=== PATIENT | male | born 1995 | race Caucasian/White ===

== ENCOUNTER 2018-04-23 22:19 | Emergency (ER) | payer BC, OTHER ==
[~2018-04-23] VITALS: Ht 176.5 cm; Wt 95.3 kg
[~2018-04-23 22:19] MED LIST: BENADRYL25 MG PO; BENADRYL50 MG PO; EPIPEN 2-PAK1 MG/ML MR; FLEXERIL10 MG PO; IBUPROFEN PO; KEFLEX500 MG PO; MEDROL DOSEPAK4 MG PO; NAPROSYN500 MG PO; PREDNICOT20 MG PO
[2018-04-23] MEDS ORDERED: BENZONATATE100 M1 PO (22:28)
[2018-04-23] MEDS ORDERED: 24 HOUR ALLER15.8 ML NAS (22:29)
[2018-04-23] MEDS ORDERED: AUGMENTIN 875875 MG PO (22:29)
[2018-04-23] MEDS ORDERED: IBU800 M1 PO (22:29)
[2018-04-23] MEDS ORDERED: ALBUTEROL2.5 MG/0.5 INH (22:31)
[2018-04-23] MEDS ORDERED: PULMICORT RESP0.5 M1 INH (22:32)
[2018-04-23 22:49] LABS: BASO % 0.5 % (0.0-1.0); EOS # 0.5 10*3/uL (0.0-0.4); EOS % 6.9 % (1.0-4.0); HEMATOCRIT 44.5 % (42.0-52.0); HEMOGLOBIN 15.6 g/dl (14.0-18.0); LYMPH # 2.8 10*3/uL (1.3-4.4); LYMPH % 35.7 % (27.0-41.0); MEAN CELL VOLUME 84.6 fl (80.0-94.0); MEAN CORPUSCULAR HGB 29.7 pg (27.0-31.0); MEAN CORPUSCULAR HGB CONC 35.1 g/dl (33.0-37.0); MONO # 0.6 10*3/uL (0.1-1.0); MONO % 7.6 % (3.0-9.0); NEUT # 3.9 10*3/uL (2.3-7.9); PLATELET COUNT AUTOMATED 191 10*3/uL (130-400); RED BLOOD COUNT 5.26 10*6/uL (4.50-5.90); RED CELL DISTRI WIDTH 12.3 % (0-14.5); WHITE BLOOD COUNT 7.9 10*3/uL (4.8-10.8)
[2018-04-23 23:05] LABS: ALBUMIN 4.3 gm/dl (3.1-4.5); ALKALINE PHOSPHATASE 115 U/L (45-117); BUN 14 mg/dl (7-24); CHLORIDE 107 mmol/L (98-107); CREATININE 0.93 mg/dL (0.70-1.30); POTASSIUM 3.8 mmol/L (3.5-5.1); SGOT/AST 9 IU/L (3-35); SGPT/ALT 24 U/L (12-78); SODIUM 143 mmol/L (136-145); TOTAL PROTEIN 7.7 gm/dL (6.4-8.2)
[2018-04-23] MEDS ORDERED: PREDNISONE50 MG PO (23:21)
== END 2018-04-24 00:04 | disposition home or self-care (01) ==
LOC: ED 22:19
PROVIDERS: Student in an Organized Health Care Education/Training Program
DX: J45.901 Unspecified asthma with (acute) exacerbation (principal); Z91.040 Latex allergy status; Z91.010 Allergy to peanuts; Z79.899 Other long term (current) drug therapy